=== PATIENT | female | born 1945 | race Caucasian/White ===

== ENCOUNTER → 2023-12-16 14:58 | Outpatient (REF) | payer OTHER, SELFPAY | LOC: WDC 14:58 | PROVIDERS: ATTENDING PHYSICIAN Nurse Practitioner Adult Health | DX: Z12.31 Encounter for screening mammogram for malignant neoplasm of breast (principal) | CPT/HCPCS: 77063; 77067 ==

== ENCOUNTER 2024-07-29 11:34 | Emergency (ER) | payer OTHER, SELFPAY ==
[2024-07-29 11:47] VITALS: BP 139/75
--- NOTE | 2024-07-29 12:21 | ED.GENMED ---
History of Present Illness
General
Chief Complaint: Fall
Source: patient and family
Exam Limitations: none
Time Seen by Provider: 07/29/24 11:55
History of Present Illness
History of Present Illness:
79yoF with a history of type 2 diabetes and hypertension presenting with her daughter for evaluation after a fall. Patient is not sure exactly what happened. She vaguely remembers being on the floor around 8am this morning. She believes she rolled
out of bed and struck her head on the night stand. She was able to get back in bed. Her daughter called her this morning around 10am and she was still in bed which is unusual. Daughter states that patient sounded disoriented on the phone but seems
much better now. Patient reports that her blood sugar was in the 160s this morning which is high for her. She started with a 'head cold' 2 days ago and started taking Mucinex yesterday. Patient currently complains of a headache, neck pain, and right
little finger pain. She denies any fevers, chest pain, shortness of breath. She does not take any blood thinners.
Past History
Past History
ED Past Medical History: None
ED Past Surgical History: Orthopedic
Social History
Tobacco: Non-smoker
Alcohol: None
Drug: None
Phy Exam
General Physical Exam
General Presentation: well appearing and no apparent distress
General age: appears stated age
General Skin: warm and dry
General Habitus: normal
General Mental: alert
ENT Exam
ENT Exam: other (Frontal hematoma and minor abrasions noted)
Eye Exam
Eye Exam: PERRL
Cardiovascular Exam
Cardiovascular Exam: regular rate/rhythm
Pulmonary Exam
Pulmonary Exam: lungs clear, no respiratory distress, no rales, no crackles, no rhonchi and no wheezing
Neurological Exam
Neurological Exam: alert, no motor deficits and other (Oriented to person, place, time, and situation.)
Jewell Coma Scale
Eye Opening: Spontaneous
Verbal Response: Oriented
Motor Response: Obeys Commands
GCS Total Score: 15
Musculoskeletal Exam
Musculoskeletal Exam: other (R little finger: Pain at PIP joint with mild swelling. No obvious deformity. ROM intact. )
Skin Exam
Skin Exam: normal color and warm/dry
Psychiatric Exam
Psychiatric Exam: normal mood/affect
Course
Orders/Labs/Results
Orders:
Orders
07/29/24 12:19
CT Cervical Spine W/o Iv Contr Urgent
Comment:
Reason For Exam: fall, neck pain
07/29/24 12:20
CT Head W/o Iv Contrast Urgent
Comment:
Reason For Exam: fall, frontal hematoma
CR Chest - 2 Views Urgent
Comment:
Reason For Exam: cough
07/29/24 12:21
Electrocardiogram (*1) Urgent
Reason for Study: Fatigue / Weakness
EKG- Treatment ONCE
07/29/24 12:24
COVID-19 Antigen Urgent
Source: Nasal Swab
Complete Blood Count/With Diff Urgent
Comprehensive Metabolic Panel Urgent
Troponin I Urgent
Influenza A+B Rapid Molecular Urgent
BRANDON Source: Nasal Swab
Specimen Description:
07/29/24 12:26
CR Finger(s)/thumb Min 2 Vw Rt Urgent
Comment:
Reason For Exam: R little finger pain
07/29/24 13:46
Aluminium Finger Splint Right ONCE
07/29/24 13:[address] Non Medication Order As Directed
Physician Order: ambulatory pulse ox
Above order entered?: Yes
07/29/24 14:26
Ondansetron Injectable [Zofran] 4 mg IV NOW STA
07/29/24 15:20
Dexamethasone [Decadron] 10 mg PO NOW STA
Abnormal Lab Results
07/29/24
12:24
WBC 12.5 H 10^3/uL
(4.8-10.8)
Abs Immat Gran (auto) 0.1 H 10^3/uL
(0-0.05)
Absolute Neuts (auto) 10.9 H 10^3/uL
(1.4-6.5)
Absolute Lymphs (auto) 1.0 L 10^3/uL
(1.2-3.4)
Immature Gran % 0.6 H %
(0-0.5)
Neutrophils % 87.4 H %
(42.2-75.2)
Lymphocytes % 7.7 L %
(20.5-51.1)
Sodium 134 L mmol/L
(135-145)
BUN 19 H mg/dl
(7-17)
Glucose 200 H mg/dl
(70-99)
07/29/24 12:24
07/29/24 12:24
Vital Signs
Initial and Last Documented VS:
Initial Vital Signs
Temp Pulse Resp BP Pulse Ox
98.1 F 93 16 139/75 98
07/29/24 11:47 07/29/24 11:47 07/29/24 11:47 07/29/24 11:47 07/29/24 11:47
Last Documented Vital Signs
Temp Pulse Resp BP Pulse Ox
98.1 F 72 14 130/52 98
07/29/24 11:47 07/29/24 15:00 07/29/24 15:00 07/29/24 15:00 07/29/24 15:00
MDM/Problems Addressed
Differential Diagnosis Includes:
79yoF here after a fall out of bed this morning. +Head strike. Daughter states patient was disoriented on the phone earlier although she is A&Ox4 on exam. Also c/o a head cold x 2 days. VSS. Frontal hematoma and abrasions noted on exam. Differential
diagnosis includes but is not limited to: mechanical fall, syncope, viral illness
Initial ED plan: Check cardiac labs, EKG, COVID/flu swab, CT head/cervical spine, CXR, and R finger x-rays.
*EKG
Interpreted by ED Provider?: Yes
EKG Intrepretation Date: 07/29/24
Heart Rate: 85
Rate: normal
Rhythm: sinus and PVC's
Ramah: left axis deviation
QRS Pattern: right bundle branch block and other (LAFB)
Ischemia: no ischemia
*Critical Care Note
Total Time (30-74mins, 75-104mins- exclusive of procedures): Not Applicable
Update Note
Update Note:
Leukocytosis noted with a WBC of 12.5 which is nonspecific. Glucose 200, bicarb normal. Viral testing negative. CT head/cervical spine negative for injuries. There is a possible fracture at the proximal phalanx on R little finger x-rays and finger
splint ordered.
On reassessment, patient is on 2L NC. Nursing staff reports that patient desaturated to 88% although patient denies feeling short of breath and CXR is normal. She was taken off oxygen and saturations are 96-97% on room air. Ambulatory pulse ox 95%.
No indication for hospitalization. She does have some scant wheezes on lung exam. Dose of Decadron ordered and prescription for albuterol inhaler sent to pharmacy. Advised close PCP f/u on Thursday and strict ED return precautions discussed. Patient
and daughter in agreement with plan. Patient discharged in stable condition.
ED Attending Note
-
Portions of this chart may have been created with voice recognition software.� Occasional wrong word or��sound alike� substitutions may have occurred due to the inherent limitations of voice recognition software.
Discharge Plan
Departure
Patient Disposition: Home (Routine Discharge)
Date of Disposition: 07/29/24
Time of Disposition: 15:21
Patient with high blood pressure during this ER visit?: No
Discharge Problem:
Closed head injury, Accidental fall from bed, Acute upper respiratory infection, Bronchospasm, Closed fracture of phalanx of little finger
Instructions: Head Injury in Adults (DC)
Prescriptions:
New
albuterol sulfate [Ventolin HFA] 90 mcg/actuation HFA aerosol inhaler
1 inh inhalation Q6H PRN (Reason: shortness of breath or wheezing) Qty: 1 0RF
No Action
losartan 50 MG tablet
50 mg PO HS
ascorbic acid (vitamin C) [Vitamin C] 1,000 MG tablet
1,000 mg PO DAILY
metformin 1,000 MG tablet
1,000 mg PO BID
aspirin 81 MG tablet,chewable
81 mg PO DAILY
finasteride 5 MG tablet
5 mg PO DAILY
cholecalciferol (vitamin D3) 2,000 UNITS tablet
2,000 units PO DAILY
multivitamin with folic acid [Tab-A-Regino] 1 TABLET tablet
1 tab PO DAILY
acetaminophen 500 MG tablet
1,000 mg PO Q6HPRN PRN (Reason: pain)
Referrals:
Arias Farley MD [Active] -
Celia Quiroga CRNP [Family Provider] -
Activity Restrictions/Additional Instructions:
Use inhaler as needed for wheezing/chest tightness. Drink plenty of fluids and rest.
Please follow-up with your family doctor on Thursday. You should also follow-up with orthopedics for your finger fracture. Return to the ER immediately with any new or worsening symptoms.
Interventions
Interventions:
*Risk Screen - Suicide Last Done: 07/29/24 11:47
*General Assessment Last Done: 07/29/24 12:34
*Neglect/Abuse Screening Last Done: 07/29/24 11:47
ED- Fall Risk Assessment Last Done: 07/29/24 12:34
*Nursing Disposition Last Done: 07/29/24 15:42
ED-Musculoskeletal Assessment Last Done: 07/29/24 12:34
ED- Neurological Assessment Last Done: 07/29/24 12:34
ED-Skin Assessment Last Done: 07/29/24 12:34
Discharge Date and Time
Discharge Date/Time: 07/29/24 15:42
Print Language: LUXEMBOURGISH
[2024-07-29 12:26] VITALS: BP 83/72
[2024-07-29 12:30] VITALS: BP 106/61
[2024-07-29 12:56] LABS: % Eosinophils 0.1 % (0-6); % Immature Granulocytes 0.6 % (0-0.5); % Lymphocytes 7.7 % (20.5-51.1); % Monocytes 4.2 % (1.7-9.3); % Neutrophils 87.4 % (42.2-75.2); Absolute Immature Granulocytes 0.1 10^3/uL (0-0.05); Absolute Monocytes 0.5 10^3/uL (0.1-0.6); Absolute Neutrophils 10.9 10^3/uL (1.4-6.5); Hemoglobin 13.3 g/dL (12.0-16.0); Mean Corp Hgb Conc. 34.1 g/dL (33.0-37.0); Mean Corpuscular Hgb 29.2 pg (27.0-31.0); Mean Corpuscular Volume 85.7 fL (81.0-99.0); Mean Platelet Volume 9.2 fL (7.4-10.4); Nucleated Red Blood Cells % 0 %; Platelet Count 232 10^3/uL (130-400); Red Blood Cell Count 4.55 10^6/uL (4.20-5.40); Red Cell Dist. Width 13.4 % (11.5-14.5); White Blood Cell Count 12.5 10^3/uL (4.8-10.8)
[2024-07-29 13:05] LABS: COVID-19 Antigen Negative (Negative)
[2024-07-29 13:08] LABS: ALT (SGPT) 21 U/L (0-35); AST (SGOT) 31 U/L (14-36); Albumin 4.4 g/dl (3.5-5.0); Alkaline Phosphatase 70 U/L (38-126); Blood Urea Nitrogen 19 mg/dl (7-17); Calcium 9.6 mg/dl (8.4-10.2); Carbon Dioxide 25 mmol/L (22-30); Chloride 100 mmol/L (98-107); Glucose 200 mg/dl (70-99); Potassium 4.4 mmol/L (3.5-5.1); Sodium 134 mmol/L (135-145); Total Bilirubin 0.5 mg/dl (0.2-1.3); Total Protein 7.2 g/dl (6.3-8.2); eGFR > 60.00
[2024-07-29 13:19] LABS: Troponin I < 0.012 ng/ml
[2024-07-29 14:30] VITALS: BP 120/60
[2024-07-29] MEDS: ZOFRAN 4 MG IV (14:41)
[2024-07-29 15:00] VITALS: BP 130/52
[2024-07-29] MEDS: DECADRON 10 MG PO (15:39)
== END 2024-07-29 15:42 | disposition home or self-care (01) ==
LOC: EMR 11:34
PROVIDERS: Physician Assistant; EMERGENCY PHYSICIAN Emergency Medicine; FAMILY PHYSICIAN Nurse Practitioner Adult Health
DX: S00.83XA Contusion of other part of head, initial encounter (principal); S62.616A Displaced fracture of proximal phalanx of right little finger, initial encounter for closed fracture; S00.81XA Abrasion of other part of head, initial encounter; W06.XXXA Fall from bed, initial encounter; J06.9 Acute upper respiratory infection, unspecified; J98.01 Acute bronchospasm; E11.9 Type 2 diabetes mellitus without complications; I10 Essential (primary) hypertension
CPT/HCPCS: 29130; 96374; 99285; 70450; 71046; 72125; 73140; 80053; 84484; 85025; 87502; 87811; 93005

== ENCOUNTER → 2024-08-02 14:28 | Outpatient (REF) | payer OTHER, SELFPAY | LOC: RAD 14:28 | PROVIDERS: ATTENDING PHYSICIAN Nurse Practitioner Adult Health | DX: M54.2 Cervicalgia (principal); R05.1 Acute cough | CPT/HCPCS: 71046; 72052 ==

== ENCOUNTER → 2024-08-18 10:52 | Outpatient (REF) | payer OTHER, SELFPAY | LOC: RAD 10:52 | PROVIDERS: ATTENDING PHYSICIAN Nurse Practitioner Adult Health | DX: E04.1 Nontoxic single thyroid nodule (principal) | CPT/HCPCS: 76536 ==

== ENCOUNTER → 2024-10-07 10:27 | Outpatient (REF) | payer OTHER, SELFPAY | LOC: RAD 10:27 | PROVIDERS: ATTENDING PHYSICIAN Nurse Practitioner Adult Health | DX: M79.671 Pain in right foot (principal) | CPT/HCPCS: 73630 ==

== ENCOUNTER 2025-01-22 22:11 | Inpatient (IN) | payer OTHER, SELFPAY ==
[2025-01-22 20:21] VITALS: BP 174/63
[2025-01-22 20:45] LABS: Hematocrit 37.8 % (37.0-47.0); Hemoglobin 12.7 g/dL (12.0-16.0); Mean Corp Hgb Conc. 33.6 g/dL (33.0-37.0); Mean Corpuscular Volume 88.3 fL (81.0-99.0); Nucleated Red Blood Cells % 0 %; Platelet Count 248 10^3/uL (130-400); Red Cell Dist. Width 13.2 % (11.5-14.5)
[2025-01-22 20:50] LABS: INR 1.02; PT 13.7 Sec (11.4-14.6)
[2025-01-22 20:53] VITALS: BMI 28.5
[2025-01-22 20:57] VITALS: BP 152/65
[2025-01-22 21:00] VITALS: BP 154/64
--- NOTE | 2025-01-22 21:01 | EDRN ---
Pt says [place] was at the beach for 2 weeks, returned 2 days ago. Pt tired yesterday, did 6 loads of wash. Pt lightheaded and dizzy this morning when she woke. All day long, pt feels she needs to take a deep breath to breathe properly and notes SORTO.
Daughter adds pt's feet were very edematous while at the beach however pt says her feet are fine now. Pt has chest pressure, not pain or discomfort. Pt is very active, swims 5 days per week. Pt with decreased appetite. No fever/chills/cough,
abd pain, n/v/c/d, urinary symptoms. No hx of similar symptoms.
[2025-01-22 21:09] LABS: ALT (SGPT) 21 U/L (0-35); AST (SGOT) 28 U/L (14-36); Albumin 4.7 g/dl (3.5-5.0); Alkaline Phosphatase 60 U/L (38-126); Blood Urea Nitrogen 22 mg/dl (7-17); Calcium 10.0 mg/dl (8.4-10.2); Carbon Dioxide 25 mmol/L (22-30); Chloride 105 mmol/L (98-107); Estimated Creatinine Clearance 49 ml/min; Glucose 109 mg/dl (70-99); Potassium 4.6 mmol/L (3.5-5.1); Sodium 139 mmol/L (135-145); Total Protein 7.3 g/dl (6.3-8.2); eGFR > 60.00
[2025-01-22 21:11] LABS: Troponin I < 0.012 ng/ml
--- NOTE | 2025-01-22 21:18 | ED.GENMED ---
History of Present Illness
General
Chief Complaint: Dizziness
Time Seen by Provider: 01/22/25 21:11
History of Present Illness
History of Present Illness:
Patient presents to the emergency department with lightheadedness, chest pressure, shortness of breath with exertion. Symptoms have gradually been worsening over the past 2 weeks. Denies any cardiac history. Notes some mild pedal edema. No
fevers or chills. No abdominal pain nausea or vomiting.
Past History
Past History
ED Past Medical History: None
ED Past Surgical History: Orthopedic
Social History
Tobacco: Non-smoker
Alcohol: None
Drug: None
Phy Exam
Physical Exam
Physical Exam:
GENERAL APPEARANCE: NAD, well developed/ well nourished
EYES lids/conjunctiva normal
EARS/NOSE/THROAT Mucous membranes moist, uvula midline without oral pharyngeal erythema, exudate or swelling
HEAD/NECK normocephalic atraumatic, neck is supple.
RESPIRATORY respiratory effort normal, speaks in full sentences, no accessory muscle use. Lungs clear to auscultation without rhonchi, wheezes, rales
CARDIAC bradycardic, irregular rhythm.
ABDOMINAL Soft, ND/NT.
MUSCLES/EXTREMITIES No abnormal range of motion, no swelling.
SKIN Warm, pink and dry. No rashes
NEUROLOGICAL Speech is clear and appropriate. Normal level of consciousness. 5/5 strength in all extremities.
PSYCH Normal mood and affect. Judgement/competence is appropriate
Course
Orders/Labs/Results
Orders:
Orders
01/22/25 Dinner
1800 calorie (15 carb) Diabetic
At Your Request: Full Participation
Diabetic Diet: Sodium, 2 Gram
01/22/25 20:20
EKG [Electrocardiogram (*1)] Urgent
Reason for Study: Bradycardia / Tachycardia
EKG- Treatment ONCE
01/22/25 20:33
Complete Blood Count/With Diff Urgent
Comprehensive Metabolic Panel Urgent
Prothrombin Time Urgent
Troponin I Urgent
01/22/25 21:20
CR Chest - 2 Views Urgent
Comment:
Reason For Exam: sob
01/22/25 21:48
Admit/Transfer Patient As Directed
Co-Sign Provider:
Level of Care: Inpatient admission
Assign to:: Telemetry
Physician / Group: iNc[facility]
Diagnosis: second deg AVB, Mobitz II
Reason for Telemetry: 2nd & Complete AV Block
Date to Stop Telemetry: 01/25/25
Time to Stop Telemetry: 11:00
Reason for Hospitalization: symptomatic bradycardia
Expected length of stay greater than two midnights?: Yes
ELOS- Estimated Length of Stay in days: 2
I certify the patient meets the requirements for IP care: Yes
PRN Pain Medication Management As Directed
May give lesser potent ordered pain med per pt: Yes
preference::
Protocol:: Medication orders for pain may be administered in a
manner that supports deferring to patient preference
when the pt is:
- Requesting an ordered lesser potent pain medication.
Least to most potent pain medications are defined
as: acetaminophen < NSAID < tramadol < opioids
(morphine, oxycodone, hydromorphone).
- Requesting a lesser dose of the same medication IF
ORDERED.
- Requesting a less intrusive route of administration
if both routes are prescribed by the provider (PO <
IV).
01/22/25 21:50
Code Status As Directed
Resuscitation Status: Full Code
01/22/25 22:39
Troponin I Q6H
Comment: at admission & every 6 hours x 2 (3 total), ECG to be done with each level
Acetaminophen [Tylenol] 650 mg PO Q6HPRN PRN
Atropine Sulfate [Atropine 0.1 mg/ml Syringe] 1 mg IV ONCE PRN
Losartan [Cozaar] 50 mg PO HS
01/22/25 22:39
Echo 2D MMode Color/Doppler Routine
Reason for Study: heart failure
CARDIOLOGY CONSULT Routine
Consulting Provider: Oliver Vela
Was physician already notified: Yes
Reason for consult: symptomatic carlos enrique, Mobitz II avb, stable
HF DIETARY CONSULT Routine
HF EDUCATOR CONSULT Routine
Comment:
Activity As Directed
Activity Level: With Assistance
Bedside Glucose Monitoring As Directed
Frequency: AC&HS
Intake/ Output As Directed
Frequency: Per unit guidelines
Nursing to Place Non Medication Order As Directed
Physician Order: zolepads at bedside
Above order entered?: Yes
Patient Education As Directed
Type: CHF folder
Comment: give on admission. Document in Interdisciplinary Education record
Sleep Apnea Assessment by RN As Directed
Comment:
Physician Instructions:
Vital Signs As Directed
Frequency: Other
Additional Instructions:: Q12 or per unit guidelines if more frequent.
Weight As Directed
Frequency: Daily
Type of Scale: Standing Scale
Comment: Daily morning weight. If unable to stand, use balanced bed scale.
Weight As Directed
Frequency: Once
Type of Scale: Standing Scale
Comment: Upon Admission. If unable to stand, use balanced bed scale.
Pulse Ox/cont/shift [RESP] Routine
Quantity: 1
Special Instructions: Daily pulse oximetry at rest. If greater than 92% at rest also obtain pulse oximetry
while ambulating as tolerated.
DX Deep Vein Thrombosis Video Routine
01/23/25 04:39
Troponin I Q6H
Comment: at admission & every 6 hours x 2 (3 total), ECG to be done with each level
01/23/25 06:00
Basic Metabolic Panel IN AM
Cardiovascular Evaluation IN AM
Magnesium IN AM
NT-proBNP IN AM
Prothrombin Time IN AM
TSH Reflex To Free T4 IN AM
01/23/25 07:30
Insulin Aspart Corrective Low [Novolog Flexpen-Low Resistance] See Protocol SC AC
01/23/25 08:00
Aspirin Chewable [Low Strength Aspirin] 81 mg PO DAILY
Finasteride [Proscar] 5 mg PO DAILY
METFORMIN HCl [Glucophage] 1,000 mg PO BID
Minoxidil [Loniten] 2.5 mg PO DAILY
01/23/25 10:39
Troponin I Q6H
Comment: at admission & every 6 hours x 2 (3 total), ECG to be done with each level
01/23/25 18:00
Enoxaparin Sodium [Lovenox] 40 mg SC QPM
01/24/25 06:00
Basic Metabolic Panel IN AM
01/25/25 06:00
Basic Metabolic Panel IN AM
01/25/25 11:00
DC Protocol for Telemetry ONCE
Abnormal Lab Results
01/22/25
20:33
BUN 22 H mg/dl
(7-17)
Glucose 109 H mg/dl
(70-99)
01/22/25 20:33
01/22/25 20:33
Vital Signs
Initial and Last Documented VS:
Initial Vital Signs
Temp Pulse Resp BP Pulse Ox
98.4 F 48 20 174/63 96
01/22/25 20:21 01/22/25 20:21 01/22/25 20:21 01/22/25 20:21 01/22/25 20:21
Last Documented Vital Signs
Temp Pulse Resp BP Pulse Ox
98.4 F 73 16 149/53 96
01/22/25 20:21 01/22/25 22:00 01/22/25 22:00 01/22/25 22:00 01/22/25 22:00
*Pulse Oximetry
SaO2: 97
Oxygen Mode of Delivery: Room air
Patient hypoxic: no
*Critical Care Note
Total Time (30-74mins, 75-104mins- exclusive of procedures): Not Applicable
ED Attending Note
ED Attending Note
ED Attending Note:
EKG and rhythm strip showing intermittent second agree heart block with 2-1 AV conduction consistent with a Mobitz 2. Patient maintaining good blood pressure and mental status. She is stable at this time. Will admit to telemetry with cardiology
consult for possible pacemaker placement
-
Portions of this chart may have been created with voice recognition software.� Occasional wrong word or��sound alike� substitutions may have occurred due to the inherent limitations of voice recognition software.
Discharge Plan
Departure
Patient Disposition: Admit
Date of Disposition: 01/22/25
Time of Disposition: 21:22
Presentation/result/management discussed w/ accepting MD/DO: Hospitalist
Discharge Problem:
AV block, Mobitz II, Symptomatic bradycardia
Interventions
Interventions:
*Risk Screen - Suicide Last Done: 01/22/25 23:04
*General Assessment Last Done: 01/22/25 20:21
*Neglect/Abuse Screening Last Done: 01/22/25 20:21
*ED- Fall Risk Assessment Last Done: 01/22/25 22:30
*Nursing Disposition Last Done: 01/22/25 22:34
ED- Neurological Assessment Last Done: 01/22/25 21:13
ED- Cardiac Assessment Last Done: 01/22/25 21:13
Discharge Date and Time
Discharge Date/Time: 01/22/25 22:34
--- NOTE | 2025-01-22 21:26 | HPS.HSE ---
Family Physician
-
Family Physician:
Chief Complaint
-
Dizziness
History of Present Illness
This is a 79-year-old female with past medical history significant for uyv-ienvacy-sgfxqjghv diabetes, hypertension, hyperlipidemia who presents to the emergency department with complaints of IVFs intolerance and found to have bradycardia with
second-degree AV block.
Patient reports that for about the last 3 days since returning from a trip to the [place] she is had worsening dyspnea on exertion, episodes of dizziness, palpitations and some persistent chest discomfort which she describes as a pressure without any
radiation to her neck back shoulders have about Carlos. She has had no syncopal episode. She has had no falls. She reported that during her stay at the [place] she did develop foot edema mostly on the left foot and below the ankle. She denies
orthopnea or PND. She denies any new medication changes. Patient denies any prior history of CHF, CAD, hypothyroid. She denies any history of Lyme disease and no recent rash or insect bites.
In the emergency department he was afebrile, blood pressure was 150/60 with a pulse rate of 76. She was satting at 7% on room air. ECG showed a rate of 56, second-degree AV block type II. Telemetry shows rate dipping down to the 40s. CBC was
unremarkable. Electrolytes BUN and creatinine were normal.
Medical History
Past Medical History
Past Medical History: Reports HTN, Hypercholesterolemia, NIDDM and Other (gout)
Past Surgical History: Reports Other
Additional Past Surgical History:
Breast biopsy() 03/27/2009
Cholecystectomy() 03/27/2009
[facility] C3-6 10/2020
Social History
Tobacco: Non-smoker
Alcohol: None
Drug: None
Employment: Retired
Family History
Family History: Not pertinent
Allergies / Home Medications
Allergies reflects when Allergies were last updated in [facility].
Home Medications with original date entered in [facility]
Allergy/Medication List:
Allergies
Allergy/AdvReac Type Severity Reaction Status Date / Time
No Known Allergies Allergy Verified 01/22/25 20:58
Home Medications
aspirin 81 mg chewable tablet 81 mg PO DAILY Blood clot prevention/tx 10/19/20
finasteride 5 mg tablet 5 mg PO DAILY Urinary issue 10/19/20
losartan 50 mg tablet 50 mg PO HS Blood pressure 10/19/20
metformin 1,000 mg tablet 1,000 mg PO BID Diabetes 10/19/20
biotin 10,000 mcg capsule 10,000 mcg PO DAILY 01/22/25
minoxidil 2.5 mg tablet 2.5 mg PO DAILY 01/22/25
muiozbyszmby-felojkxd-ubdonm tablet 1 tab PO DAILY 01/22/25
Review of Systems
-
Constitutional: Reports No Symptoms
EENT: Reports No Symptoms
Respiratory: Reports Other (Exertional dyspnea)
Cardiac: Reports Palpitations
Abdomen/GI: Reports No Symptoms
: Reports No Symptoms
Musculoskeletal: Reports No Symptoms
Skin: Reports No Symptoms
Neurological: Reports Dizzy
Endocrine: Reports No Symptoms
Hematologic/Lymphatic: Reports No Symptoms
Psych: Reports No Symptoms
Physical Exam
Vital Signs
Vital Signs
Temp Pulse Resp BP Pulse Ox
98.4 F 76 19 154/64 97
01/22/25 20:21 01/22/25 21:00 01/22/25 21:00 01/22/25 21:00 01/22/25 21:19
Physical Exam
General: Well Developed, Well Nourished and No Apparent Distress
HEENT: NormoCephalic, Moist mucous membranes and Atraumatic
Respiratory: Clear
Cardiac: S1/S2, Regular Rhythm and Other (Intermittent bradycardia, no rubs or gallops); No Murmur, Rub or Peripheral Edema
GI: Soft, Non Tender, Non Distended and Normal Bowel Sounds; No Organomegaly
Rectal: Deferred by Provider
Musculoskeletal: No Clubbing, No Cyanosis and No Edema
Skin: No Rash
Neuro: AO x 3 and Nonfocal/grossly intact
Hematologic/Lymphatic: No Lymphadenopathy
Psych: Calm
Laboratory Results
-
01/22/25 20:33
01/22/25 20:33
Laboratory Results
PT 13.7 Sec (11.4-14.6) 01/22/25 20:33
INR 1.02 01/22/25 20:33
Total Bilirubin 0.5 mg/dl (0.2-1.3) 01/22/25 20:
AST 28 U/L (14-36) 01/22/25:
ALT 21 U/L (0-35) 01/22/25 20:33
Alkaline Phosphatase 60 U/L (38-126) 01/22/25 20:
Troponin I < 0.012 ng/ml 01/22/25 20:33
Data Reviewed
-
Medical Tests (Nuc Med, Echo, EKG etc): Image Personally Visualized and interpreted
Lab Data: Labs Reviewed by me
Old Records: Reviewed
Impression/Plan
-
IMPRESSION:
This is a well-appearing 79-year-old female with past medical history of qrf-myqejqi-gvxvacuvv diabetes, hypertension who presents to the emergency department with 3 days of dyspnea on exertion, dizziness, lightheadedness and some chest discomfort
which she describes as a pressure without pain and no radiation. She had an episode of lower extremity swelling on the right foot about 1 week ago. Found to have bradycardia on ECG with second-degree Mobitz type II AV block. Her troponin is
negative. Blood pressure and EKG is hemodynamically stable. She is currently does not feel the symptoms although she is intermittently dipping into the 40s on telemetry with second-degree AV block.
PLAN:
Symptomatic bradycardia with second-degree Mobitz 2 AV block -likely secondary to fibrosis rather than ischemic or hypothyroid but cannot rule out CHF
-Admit to telemetry
-Check BMP, TSH, cycle enzymes
-Check echo in the morning
-Cardiovascular panel
-Cardiology consult as patient will likely require safety PPM
-PT/INR
DM II
- continue metformin for now
- sliding scale insulin
HTN
- continue losartan
DVT PPX - lovenox sq
Code status - Full code
[2025-01-22 22:00] VITALS: BP 149/53
[2025-01-22 23:00] VITALS: BP 179/65; BMI 25.8
[2025-01-23] VITALS (14 sets, daily range): BP systolic 111–143; BP diastolic 50–94; BMI 25.7
[2025-01-23] MEDS: COZAAR 50 MG PO ×2 (00:06→22:15)
--- NOTE | 2025-01-23 00:18 | PTCARENOTE ---
Addendum entered by Joselyn Ellison RN 01/23/25 00:26:
pt is also symptomatic c/o dizziness and lightheadedness with movement.
Original Note:
Pt admitted to unit. admission completed. Discussed Cozzar dose with WAREHOUSE RECORD CLERK semiconductor wafer inspector who stated to give the full dose to the pt. VV 138/64 HR 52. Alerted WAREHOUSE RECORD CLERK to pts alarming for HR in the 30's and sustaining at times in the 40's. 2nd degree AVB on
monitor. Pt to be tx to IVU.
--- NOTE | 2025-01-23 03:09 | PTCARENOTE ---
Assumed care of pt from 4 east into room 2242 via . Pt ambulated w/ standby assist and denies any lightheadedness. Patient denies any pain or SOB at this time. Tele monitor fluctuates between SR and SR w/ 2nd AV block w/ 2:1 AV conduction and
occasional PVCs and BBBC. HR anywhere from 30-70's at rest. Patient unaware of heart rhythm changes. Singh Flores FREIGHT SERVICE INSPECTOR aware of EKG results. Patient oriented to room, call nicole within reach.
[2025-01-23 03:32] LABS: INR 1.07; PT 14.2 Sec (11.4-14.6)
[2025-01-23 03:44] LABS: Blood Urea Nitrogen 20 mg/dl (7-17); Calcium 9.6 mg/dl (8.4-10.2); Carbon Dioxide 26 mmol/L (22-30); Chloride 108 mmol/L (98-107); Estimated Creatinine Clearance 48 ml/min; Glucose 90 mg/dl (70-99); HDL Cholesterol 54 mg/dl; LDL Cholesterol, Calculated 59 mg/dl; Magnesium 1.8 mg/dl (1.6-2.3); Potassium 3.9 mmol/L (3.5-5.1); Sodium 140 mmol/L (135-145); Very Low Density Lipoprotein 29 mg/dl (0-30); eGFR > 60.00
[2025-01-23 03:55] LABS: Troponin I < 0.012 ng/ml
--- NOTE | 2025-01-23 08:18 | W.PN.HOSP.TC ---
Today's Communication/Plan
-
N.p.o.
Echo
Cardiology consult
Assessment / Plan
Assessment / Plan
Gen-AAOx3, NAD
HEENT-NC, AT, anicteric, clear oral mm
Neck-supple
CV-reg, no M, +S1/S2
Lungs-clear B/L
Abd-soft, NT, ND
Ext-no edema
Musculoskeletal-no cyanosis, clubbing
Skin-warm and dry
Neuro-grossly non-focal
Psych-calm, cooperative
Symptomatic bradycardia -symptoms started 2 weeks ago with progressive dyspnea on exertion and lightheadedness. Noticed bipedal edema. EKG shows Mobitz 2 second-degree AV block, bifascicular block. Awaiting cardiology input for pacemaker. TSH
normal.
Essential hypertension
DM 2 without hyperglycemia -hold metformin. Use low resistance NovoLog scale.
Hyperlipidemia
Gout
Full code
Anticipated Discharge: 24 - 48 hours
Subjective/Interval History
-
Date of Service: January 23, 2025
Patient seen and examined. No complaints. Feels better.
Objective Data
-
Labs:
Laboratory Results
01/22/25 01/23/25
20:33 02:47
WBC 7.6
Hgb 12.7
Hct 37.8
Plt Count 248
PT 13.7 14.2
INR 1.02 1.07
Sodium 139 140
Potassium 4.6 3.9
Chloride 105 108 H
Carbon Dioxide 25 26
BUN 22 H 20 H
Creatinine 0.8 0.8
Glucose 109 H 90
Calcium 10.0 9.6
Total Bilirubin 0.5
AST 28
ALT 21
Alkaline Phosphatase 60
Vital Signs:
Vital Signs
Temp Pulse Resp BP Pulse Ox
98.1 F 72 20 135/50 94
01/23/25 07:54 01/23/25 06:00 01/23/25 07:54 01/23/25 02:41 01/23/25 07:54
I&O
01/22/25 01/23/25 01/24/25
06:59 06:59 06:59
Intake Total 120 / 120
Balance 120 / 120
Review of Systems
-
History Source: Patient
All other systems: Reviewed and negative
--- NOTE | 2025-01-23 08:31 | CON.CAR ---
Addendum entered and electronically signed by Ruy Kay MD 01/23/25 09:31:
I saw and examined the patient independently.
The DEPARTMENTAL BUYER's note was reviewed and I agree with the note. With changes/additions as noted below.
Comment:
79 yo female with PMH of HTN bifascicular block admitted with symptomatic bradycardia. She has noted SORTO, dizziness for a few days. Exam with irregular rhythm, no murmurs, trace LE edema. TnI <0.012. EKG: sinus with 2:1 AV conduction, bifascicular
block. Echo: EF 60-65%, mild/mod MR.
# Symptomatic bradycardia, severe
-2:1 AV conduction with h/o bifasicular block
-PPM today
# HTN
-chronic: continue losartan
Original Note:
Consultation
Consultation Request
Date/Time Consultation Requested: 01/22/252238
Date/Time Consultation Performed: 01/23/25 0831
Requesting Provider: Dr. Rivera
Performing Provider: Liss POLANCO for Dr. Kay
Reason for Consultation: Mobitz II heart block, symptomatic bradycardia
Medical History
-
Chief Complaint: SORTO, light-headed, chest discomfort
History of Present Illness:
79 y/o female with hypertension, diabetes, and orthopedic issues (hx spine surgery) who is here for evaluation of 2 weeks of SORTO. Then over the weekend also felt fatigue, as well as light-headedness and chest pressure. The latter two symptoms lasted
all day yesterday and nothing made them better or worse. So she came in for evaluation and was seen to have periods of Mobitz II HB. She is in no distress at the time of my assessment and is feeling fine. [place] also [place], but it is now resolved. BNP and trop are normal.
Past Medical History
Past Medical History: HTN and NIDDM
Past Surgical History: Orthopedic
Social History
Tobacco: Former Smoker
Alcohol: Occasional
Drug: None
Personal:
Family History
Family History: Reviewed & Not Pertinent
Allergies / Home Medications
Allergy/AdvReac Type Severity Reaction Status Date / Time
No Known Allergies Allergy Verified 01/22/25 20:58
�Medication �Instructions �Recorded �Confirmed �Type
aspirin 81 mg chewable tablet 81 mg PO DAILY Blood clot 10/19/20 01/22/25 History
prevention/tx
finasteride 5 mg tablet 5 mg PO DAILY Urinary issue 10/19/20 01/22/25 History
losartan 50 mg tablet 50 mg PO HS Blood pressure 10/19/20 01/22/25 History
metformin 1,000 mg tablet 1,000 mg PO BID Diabetes 10/19/20 01/22/25 History
biotin 10,000 mcg capsule 10,000 mcg PO DAILY Supplement 01/22/25 01/22/25 History
minoxidil 2.5 mg tablet 2.5 mg PO DAILY hypertension 01/22/25 01/22/25 History
kmewpglpvmtv-nvoyzeln-xmimca tablet 1 tab PO DAILY Supplement 01/22/25 01/22/25 History
Review of Systems
-
History Source: Patient
All other systems: Negative unless noted
Constitutional: Fatigue
Respiratory: Trouble Breathing
Cardiac: Chest Pain
Musculoskeletal: Edema
Neurological: Dizzy (light-headedness)
Physical Exam
Vital Signs
Temp Pulse Resp BP Pulse Ox
98.1 F 72 20 135/50 94
01/23/25 07:54 01/23/25 06:00 01/23/25 07:54 01/23/25 02:41 01/23/25 07:54
Lab Results
01/22/25 20:33
01/23/25 02:47
Troponin I < 0.012 ng/ml 01/23/25 02:47
Uls-E-Jlkzwosnmou Pept 202 pg/ml 01/23/25 02:47
Physical Exam
General: Well Developed, Well Nourished and No Apparent Distress
HEENT: Normocephalic and Anicteric
Respiratory: Clear and Non Labored Respirations
Cardiac: Regular Rhythm
Skin: Warm and Dry
Neuro: AO x 3
Psych: Calm
Impression / Plan
-
Severe symptomatic bradycardia, Mobitz II HB:
-this condition is threat to life. Echo being done now. TSH WNL.
-plan for pacemaker today. We discussed this and patient is agreeable.
HTN:
-stable
-continue losartan
DM:
-on metformin as OP
-management per primary
Data Reviewed
-
EKG: Tracing Personally Visualized and interpreted (SR with 2nd degree HB (mobitz II), bifasicular block)
Radiology: Report Reviewed by me (CXR: no acute abnormality)
Medical Tests (Nuc Med, Echo etc): Other (echo ordered and pending)
Labs: Labs Reviewed by me
[2025-01-23] MEDS: LOW STRENGTH ASPIRIN 81 MG PO (09:36)
--- NOTE | 2025-01-23 09:53 | PTCARENOTE ---
pt 2:1 heart block. pt asymptomatic at this time. pt educated on plan of care and verbalized understanding. new iv started, left ac. pt off unit for PPM.
[2025-01-23 09:55] LABS: Troponin I < 0.012 ng/ml
[2025-01-23 12:34] LABS: Glucose - Point of Care 114 mg/dl (70-99)
[2025-01-23] MEDS: PROSCAR 5 MG PO (13:32)
[2025-01-23] MEDS: LONITEN 2.5 MG PO (13:32)
--- NOTE | 2025-01-23 14:19 | PTCARENOTE ---
pt back from ppm. left chest wall dressing is cdi. pt offers no complaints at this time. pt educated on restrictions and pt verbalized understanding. call nicole within reach.
--- NOTE | 2025-01-23 16:02 | ITS.CL.PACE ---
[facility] - Pacemaker Implant
Pacemaker Implant
Procedure Report:
Date of Procedure: January 23, 2025.
Procedure: Pacemaker Implantation. Left upper extremity venogram.
Indication: The pacemaker is for the treatment of nonreversible symptomatic bradycardia due to second degree (Mobitz II) atrioventricular block.
Performing physician: Lukasz Palmer MD, [facility].
Implants:
Pulse Generator: Medtronic; Model# [id number]; Serial# [id number].
RA Lead: Medtronic; Model# 5076-52cm; Serial# [id number].
RV Lead: Medtronic; Model# 3830-69cm; Serial# [id number].
Technique: A time out was performed. A 10 mL upper extremity venogram demonstrated patent left axillary, cephalic, and subclavian veins. The procedure site was identified. The patient was anesthetized by the anesthesia service. Preoperative
cefazolin was administered. The patient was prepped and draped in the usual fashion. Local anesthetic was applied to the left prepectoral subcutaneous tissue. A 3 inch incision was made along the left deltopectoral groove. Dissection was carried to
the fascia. The left cephalic vein was easily isolated and proximal and distal control with 2-0 Vicryl suture. Using a micropuncture needle to access the cephalic vein under direct visualization a wire was advanced into the central circulation. A 7
Fr introducer was placed to allow two 0.35 J wires to be advanced. The leads were introduced with hemostatic peel away introducer sheaths. The RV lead was placed using utilizing the Scribz His delivery catheter ([id number]) that was advanced to the
left bundle area as confirmed by fluoroscopy in the MYRA and GASCA projections. The lead tip was advanced. PVC morphology was reviewed. When a satisfactory location was identified (W pattern observed) the lead was screwed into position with serial
turns. Septal engagement was confirmed with gentle torque applied to the guide sheath. After each series of turns (2-3) unipolar sensed morphology and impedance, and paced morphology of V1 was analyzed. The lead was further advanced until
satisfactory morphology and electrical characteristics were confirmed. The RV lead was placed in the third location evaluated. The long guiding sheath was cut and removed from the RV without change in lead position, impedance, sensing, or capture.
The ventricular lead was secured to the pectoralis muscle and fascia with two 0-silk sutures. The atrial lead was placed in the right atrial appendage. 8 volt pacing from each lead did not capture the diaphragm. The atrial leads was secured to the
pectoralis muscle and fascia. A subcutaneous pocket was created with blunt cautery. Hemostasis was excellent and achieved with Bovie cautery as needed. The leads were appropriately attached to the device. The pocket was irrigated with antibiotic
solution. The device and leads were placed in the pocket. The incision was closed in three layers with absorbable suture. Steri-strips and a silver impregnated dressing were placed. Estimated blood loss was less than 15 ml. There were no
complications. Fluoroscopy time 4.7 minutes and DAP 1.19 GyCM2. The device was then interrogated after skin closure.
Lead Analysis:
RA lead: P: 3.75 mV; Threshold: 0.5 V @ 0.4 ms; Impedance: 520 ohms.
RV lead (bipolar): R: 5.7 mV; Threshold: 0.75 V @ 0.4 ms; Impedance: 720 ohms.
Paced QRS characteristics: V1 has Qr morphology and measures 130 ms in duration, LVAT (stim to peak V5/V6) is 74 ms, and R peak V1 to R peak V6 is 37 ms.
The RV lead has similar characteristics in unipolar and bipolar configurations at both high and low outputs.
Final Programming: DDDR 60-130 bpm.
Conclusion: Uncomplicated Medtronic pacemaker implant. Successful conduction system pacing lead placement. The pacing system is MRI conditional.
Recommendation: Routine post pacemaker care.
cc: Ruy Kay MD and COLLIN Gray.
--- NOTE | 2025-01-23 17:00 | CM ---
spoke to pt in room, she is prev indep, lives alone in a 2 story home with no steps to enter. she has a cane to use if needed. she denies any dc planning needs. plan is for dc to home when medically stable.
[2025-01-23 17:58] LABS: Glucose - Point of Care 185 mg/dl (70-99)
[2025-01-23] MEDS: LOVENOX 40 MG SC (18:08)
[2025-01-23] MEDS: ANCEF 5 IV (18:08)
--- NOTE | 2025-01-23 21:07 | PTCARENOTE ---
assumed care of patient. AAOx3. patient states feeling better. SR on tele 70s. bp stable. L chest PPM site soft; dressing intact. mild crepitus noted over dressing- unchanged from previous shift. L arm immobilizer in place. denies any pain.
reviewed activity restrictions and verbalized understanding. call nicole within reach. makes needs known.
[2025-01-23 22:26] LABS: Glucose - Point of Care 119 mg/dl (70-99)
[2025-01-23] MEDS: TYLENOL 650 MG PO (22:49)
[2025-01-24 02:59] VITALS: BP 111/57
[2025-01-24] MEDS: ANCEF 5 IV (03:01)
[2025-01-24 03:21] VITALS: BMI 25.9
[2025-01-24] MEDS: TYLENOL 650 MG PO ×2 (03:40→08:31)
[2025-01-24 03:46] LABS: Hematocrit 33.7 % (37.0-47.0); Hemoglobin 11.5 g/dL (12.0-16.0); Mean Corp Hgb Conc. 34.1 g/dL (33.0-37.0); Mean Corpuscular Volume 87.1 fL (81.0-99.0); Platelet Count 205 10^3/uL (130-400); Red Cell Dist. Width 13.4 % (11.5-14.5)
[2025-01-24 04:08] LABS: Blood Urea Nitrogen 21 mg/dl (7-17); Calcium 8.8 mg/dl (8.4-10.2); Carbon Dioxide 24 mmol/L (22-30); Chloride 109 mmol/L (98-107); Estimated Creatinine Clearance 48 ml/min; Glucose 94 mg/dl (70-99); Potassium 3.8 mmol/L (3.5-5.1); Sodium 140 mmol/L (135-145); eGFR > 60.00
[2025-01-24 06:50] VITALS: BP 119/60
[2025-01-24 06:57] LABS: Glucose - Point of Care 92 mg/dl (70-99)
--- NOTE | 2025-01-24 08:22 | W.PN.HOSP.TC ---
Today's Communication/Plan
-
Discharge
Assessment / Plan
Assessment / Plan
Gen-AAOx3, NAD
HEENT-NC, AT, anicteric, clear oral mm
Neck-supple
CV-reg, no M, +S1/S2
Lungs-clear B/L
Abd-soft, NT, ND
Ext-no edema
Musculoskeletal-no cyanosis, clubbing
Skin-warm and dry
Neuro-grossly non-focal
Psych-calm, cooperative
Symptomatic bradycardia -symptoms started 2 weeks ago with progressive dyspnea on exertion and lightheadedness. Noticed bipedal edema. EKG shows Mobitz 2 second-degree AV block, bifascicular block. TSH normal.
Underwent Medtronic pacemaker placement 01/23.
Essential hypertension -stable.
DM 2 without hyperglycemia -hold metformin. Use low resistance NovoLog scale.
Hyperlipidemia
Gout
Full code
Dispo -stable for discharge today if okay with cardiology. Outpatient follow-up.
Anticipated Discharge: Today
Subjective/Interval History
-
Date of Service: January 24, 2025
Patient seen and examined. No complaints.
Objective Data
-
Labs:
Laboratory Results
01/24/25
03:07
WBC 7.6
Hgb 11.5 L
Hct 33.7 L
Plt Count 205
Sodium 140
Potassium 3.8
Chloride 109 H
Carbon Dioxide 24
BUN 21 H
Creatinine 0.8
Glucose 94
Calcium 8.8
Vital Signs:
Vital Signs
Temp Pulse Resp BP Pulse Ox
98 F 69 18 111/57 95
01/24/25 06:48 01/24/25 06:48 01/24/25 06:48 01/24/25 02:59 01/24/25 06:48
I&O
01/23/25 01/24/25 01/25/25
06:59 06:59 06:59
Intake Total 120 / 120 450 / 450
Balance 120 / 120 450 / 450
Review of Systems
-
History Source: Patient
All other systems: Reviewed and negative
[2025-01-24] MEDS: LOW STRENGTH ASPIRIN 81 MG PO (08:31)
[2025-01-24] MEDS: LONITEN 2.5 MG PO (08:31)
[2025-01-24] MEDS: PROSCAR 5 MG PO (08:32)
--- NOTE | 2025-01-24 09:26 | PTCARENOTE ---
received patient up in chair . monitor shows NSR, VSS. patient stated that she has discomfort on LCW pacer site, Tylenol po given as ordered. Dr. Palmer at bedside, removed immobilizer, aware of crepitus under Acuseal, distal pulse palpable. patient
is ready to be discharged to home.
[2025-01-24 11:00] VITALS: BP 152/59
--- NOTE | 2025-01-24 11:06 | W.PN.UPDATE ---
Update Note
Progress Note Update
Patient seen and examined. Chest x-ray, telemetry, and twelve-lead EKG reviewed and are all very good. Pacemaker site normal. Incision and arm care reviewed. Follow-up arranged. Okay for home from our perspective.
[2025-01-24 11:07] VITALS: BP 152/59
[2025-01-24 11:11] LABS: Glucose - Point of Care 120 mg/dl (70-99)
--- NOTE | 2025-01-24 11:21 | W.DS.TRANS ---
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
-
Discharge Instructions:
Discharge Diagnosis/Procedures Heart block, s/p pacemaker implant
Diet Diabetic, Carb Controlled
Activity As tolerated
Driving Restrictions No driving for 1 week
Bathing Restrictions None
Instructions:
Stand-Alone Forms: DC Inst - Implanted Device
Changes to Home Medications: No
Discharge Medications:
DC Medications w/original date entered in [employer]
aspirin 81 mg chewable tablet 81 mg PO DAILY Blood clot prevention/tx 10/19/20
finasteride 5 mg tablet 5 mg PO DAILY Urinary issue 10/19/20
losartan 50 mg tablet 50 mg PO HS Blood pressure 10/19/20
metformin 1,000 mg tablet 1,000 mg PO BID Diabetes 10/19/20
biotin 10,000 mcg capsule 10,000 mcg PO DAILY Supplement 01/22/25
minoxidil 2.5 mg tablet 2.5 mg PO DAILY hypertension 01/22/25
efdysjupcwbm-jrtlpvkg-uvggzs tablet 1 tab PO DAILY Supplement 01/22/25
Home Medication Changes
Pending Results: No
--- NOTE | 2025-01-24 11:38 | PTCARENOTE ---
D/C instructions given to patient and daughter both verbalizes understanding. INT x 2 D/C'd, telemetry D/C'd, LCW Acuseal intact, no hematoma, no ecchymosis, crepitus remains under Acuseal. pain relieved with tylenol. D/C to home via [place] accompanied
by vol. services.
== END 2025-01-24 11:45 | disposition home or self-care (01) | DRG 244 ==
LOC: IVU 22:11
PROVIDERS: Internal Medicine Cardiovascular Disease; Nurse Practitioner; ADMITTING PHYSICIAN Internal Medicine; ATTENDING PHYSICIAN Hospitalist; EMERGENCY PHYSICIAN Emergency Medicine; FAMILY PHYSICIAN Nurse Practitioner Adult Health; OTHER PHYSICIAN Internal Medicine
PROC: 02HK3JZ Insertion of Pacemaker Lead into Right Ventricle, Percutaneous Approach (ICD-10-PCS; 2025-01-23)
PROC: 0JH606Z Insertion of Pacemaker, Dual Chamber into Chest Subcutaneous Tissue and Fascia, Open Approach (ICD-10-PCS; 2025-01-23)
PROC: 02H63JZ Insertion of Pacemaker Lead into Right Atrium, Percutaneous Approach (ICD-10-PCS; 2025-01-23)
DX: I44.2 Atrioventricular block, complete (principal); I45.2 Bifascicular block; I11.0 Hypertensive heart disease with heart failure; I50.9 Heart failure, unspecified; E11.9 Type 2 diabetes mellitus without complications; E78.00 Pure hypercholesterolemia, unspecified; M10.9 Gout, unspecified; Z79.82 Long term (current) use of aspirin; Z79.84 Long term (current) use of oral hypoglycemic drugs; Z87.891 Personal history of nicotine dependence
CPT/HCPCS: 33208; 71045; 71046; 80048; 80053; 80061; 82962; 83735; 83880; 84443; 84484; 85025; 85027; 85610; 93005; 93306; 99285; C1769; C1785; C1887; C1898; Q9967